=== PATIENT | male | born 1945 | race Caucasian/White ===

== ENCOUNTER 2017-10-03 18:44 | Observation (INO) | payer OTHER ==
[~2017-10-03] VITALS: Ht 182.9 cm; Wt 83.7 kg
[~2017-10-03 18:44] MED LIST: ASPIRIN E.C.81 M2 PO; ASPIRIN81 M1 PO; CARAFATE1 GM PO; CIPROFLOXACIN500 M1 PO; Catapres-TTS 3 TD; Ceftin PO; Cipro PO; DICYCLOMINE HCL20 MG PO; ENDOCET 5-3251 EACH PO; FLAGYL500 MG PO; FLOMAX0.4 MG PO; Flagyl PO; Habitrol,Nicoderm CQ TD; INDERAL10 MG PO; LEVAQUIN750 MG PO; LISINOPRIL-HCT1 EACH PO; LOPRESSOR50 MG PO; METRONIDAZOLE500 MG PO; NITROFURANTOIN100 M3 PO; NOHOMEMEDS; NORVASC10 MG PO; Norvasc PO; OMEPRAZOLE20 MG PO; OXYCODONE HCL10 MG PO; OxyCODONE PO; PANTOPRAZOLE SO40 MG PO; PERCOCET 5/31 TABLET PO; PHENERGAN25 MG PR; PRINZIDE 10-121 EACH PO; PROMETHAZINE HC25 M1 PO; PROTONIX40 MG PO; Percocet 5/325,Endoc PO; Protonix PO; REGLAN10 MG PO; Reglan PO; SENNA-TIME S T1 EACH PO; SUCRALFATE1 GM PO; TYLENOL WITH C1 EACH PO; XARELTO15 MG PO; ZESTORETIC 10-1 EAC1 PO; ZOFRAN4 MG PO
[2017-10-03 20:10] LABS: HEMATOCRIT 47.7 % (38.0-50.0); HEMOGLOBIN 16.1 G/DL (12.5-16.6); MCH 29.4 PG (29.0-34.0); MCHC 33.8 G/DL (30.0-36.0); RBC DIS.WIDTH-CV 13.7 % (11.8-14.6); RBC DIS.WIDTH-SD 43.9 % (39-53); RED BLOOD COUNT 5.48 M/uL (4.00-5.50); WHITE BLOOD COUNT 14.6 K/uL (4.1-10.2)
[2017-10-03 20:12] LABS: PLATELET COUNT 291 K/uL (156-360)
[2017-10-03 20:22] LABS: ALBUMIN 4.6 g/dL (3.2-4.8); CHLORIDE 99 mEq/L (99-109); POTASSIUM 4.4 mEq/L (3.7-5.4); SODIUM 139 mEq/L (136-147)
[2017-10-03 20:24] LABS: GLUCOSE 170 mg/dL (70-99); TOTAL PROTEIN 8.5 g/dL (6.4-8.3)
[2017-10-03 20:26] LABS: TOTAL BILIRUBIN 0.5 mg/dL (0.0-1.0)
[2017-10-03 20:28] LABS: ALKALINE PHOSPHATASE 152 IU/L (3-129); CREATININE 1.1 mg/dL (0.6-1.3); GFR ESTIMATE (CALCULATED) > 59 mL/min/ (58.99-99999)
[2017-10-03 20:29] LABS: UREA NITROGEN (BUN) 19 mg/dL (9-23)
[2017-10-03 20:30] LABS: AST (GOT) 17 IU/L (2-34)
[2017-10-03 20:31] LABS: ALT (GPT) 13 IU/L (3-49)
[2017-10-03 21:13] LABS: LIPASE 4 U/L (1.0-51.0)
[2017-10-03 21:16] LABS: TROP-I INTERPRETATION NEGATIVE; TROPONIN-I 0.03 ng/mL (0.0-0.30)
[2017-10-04 01:49] LABS: APPEARANCE CLEAR ((CLEAR)); BILIRUBIN NEGATIVE; BLOOD SMALL; COLOR YELLOW ((YELLOW)); GLUCOSE (STRIP) 50; KETONES 5; LEUKOCYTES NEGATIVE; NITRITE NEGATIVE; PROTEIN (STRIP) 100; SPECIFIC GRAVITY 1.032 (1.000-1.030); UROBILINOGEN 0.2 MG/DL (0.2-1.0)
[2017-10-04 01:53] LABS: BACTERIA NONE SEEN /HPF; EPITHELIAL CELLS RARE /HPF; MUCUS NONE SEEN /LPF; RED BLOOD CELLS 15-20 /HPF (0-5); UCUL ADDED? NO; WHITE BLOOD CELLS 0-5 /HPF (0-5)
[2017-10-04 02:07] LABS: TROP-I INTERPRETATION NEGATIVE; TROPONIN-I 0.06 ng/mL (0.0-0.30)
[2017-10-04] MEDS ORDERED: CLOTRIMAZOLE-BE15 GM TP (08:55)
[2017-10-04] MEDS ORDERED: CLONIDINE HCL0.2 MG PO (08:56)
[2017-10-04] MEDS ORDERED: ASPIRIN81 M2 PO (08:56)
[2017-10-04] MEDS ORDERED: LISINOPRIL-HCT1 EAC3 PO (09:00)
[2017-10-04 09:44] LABS: TROP-I INTERPRETATION NEGATIVE; TROPONIN-I 0.09 ng/mL (0.0-0.30)
[2017-10-04 10:02] VITALS: BP 179/81
[2017-10-04 15:44] LABS: TROP-I INTERPRETATION NEGATIVE; TROPONIN-I 0.08 ng/mL (0.0-0.30)
[2017-10-04 16:11] VITALS: BP 178/67
[2017-10-04 20:00] VITALS: BP 142/75
[2017-10-05 00:13] VITALS: BP 136/65
[2017-10-05 04:47] VITALS: BP 109/66
[2017-10-05 06:16] LABS: MCH 28.4 PG (29.0-34.0); MCHC 32.6 G/DL (30.0-36.0); PLATELET COUNT 295 K/uL (156-360); RBC DIS.WIDTH-CV 13.9 % (11.8-14.6); RBC DIS.WIDTH-SD 44.2 % (39-53); RED BLOOD COUNT 5.29 M/uL (4.00-5.50)
[2017-10-05 06:39] LABS: CHLORIDE 98 MEQ/L (99-109); CREATININE 1.1 MG/DL (0.6-1.3); GFR ESTIMATE (CALCULATED) > 59 mL/min/ (58.99-99999); POTASSIUM 4.2 MEQ/L (3.7-5.4); SODIUM 135 MEQ/L (136-147); UREA NITROGEN (BUN) 26 mg/dL (9-23)
[2017-10-05 06:43] LABS: GLUCOSE 104 mg/dL (70-99)
[2017-10-05 07:19] VITALS: BP 126/69
[2017-10-05 10:44] VITALS: BP 141/74
[2017-10-05 16:19] VITALS: BP 111/62
[2017-10-05 19:30] VITALS: BP 124/61
[2017-10-05 20:51] LABS: APPEARANCE CLEAR ((CLEAR)); BILIRUBIN NEGATIVE; BLOOD SMALL; COLOR YELLOW ((YELLOW)); GLUCOSE (STRIP) NEGATIVE; KETONES NEGATIVE; LEUKOCYTES NEGATIVE; NITRITE NEGATIVE; PROTEIN (STRIP) NEGATIVE; SPECIFIC GRAVITY 1.014 (1.000-1.030); UROBILINOGEN 0.2 MG/DL (0.2-1.0)
[2017-10-05 21:06] LABS: BACTERIA NONE SEEN /HPF; EPITHELIAL CELLS NONE SEEN /HPF; MUCUS TRACE /LPF; RED BLOOD CELLS 0-5 /HPF (0-5); UCUL ADDED? NO; WHITE BLOOD CELLS 0-5 /HPF (0-5)
[2017-10-06 00:03] VITALS: BP 88/51
[2017-10-06 04:01] VITALS: BP 100/59
[2017-10-06 07:26] VITALS: BP 128/61
[2017-10-06] MEDS ORDERED: BENTYL20 MG PO (09:34)
[2017-10-06] MEDS ORDERED: PANTOPRAZOLE SO40 MG PO (09:35)
[2017-10-06] MEDS ORDERED: FLAGYL500 MG PO (09:36)
[2017-10-06] MEDS ORDERED: CIPRO500 MG PO (09:36)
[2017-10-06 10:02] LABS: HEMATOCRIT 41.6 % (38.0-50.0); HEMOGLOBIN 13.7 G/DL (12.5-16.6); MCH 29.4 PG (29.0-34.0); MCHC 32.9 G/DL (30.0-36.0); MCV 89.3 FL (86-99); RBC DIS.WIDTH-SD 45.5 % (39-53); RED BLOOD COUNT 4.66 M/uL (4.00-5.50); WHITE BLOOD COUNT 10.4 K/uL (4.1-10.2)
[2017-10-06 10:11] LABS: PLATELET COUNT 191 K/uL (156-360)
[2017-10-06 10:13] LABS: CHLORIDE 101 MEQ/L (99-109); CREATININE 1.1 MG/DL (0.6-1.3); GFR ESTIMATE (CALCULATED) > 59 mL/min/ (58.99-99999); GLUCOSE 128 mg/dL (70-99); POTASSIUM 3.8 MEQ/L (3.7-5.4); SODIUM 134 MEQ/L (136-147); UREA NITROGEN (BUN) 31 mg/dL (9-23)
[2017-10-06 10:55] VITALS: BP 124/63
== END 2017-10-06 14:32 | disposition home or self-care (01) ==
LOC: EME 18:44 → EDOF 10-04 08:10 → 5WEST 10-04 08:10 → ENRESERV 10-04 08:13 → EDOF 10-04 08:27 → ENRESERV 10-04 08:43 → UNDODEPER 10-04 09:17 → 5WEST 10-04 09:29 → EDOF 10-04 09:35 → ENRESERV 10-04 09:54 → 5WEST 10-04 09:54
PROVIDERS: Emergency Medicine; Internal Medicine; Nurse Practitioner Adult Health
PROC: 0DB68ZX Excision of Stomach, Via Natural or Artificial Opening Endoscopic, Diagnostic (ICD-10-PCS; principal; 2017-10-05)
DX: R07.9 Chest pain, unspecified (principal); A09 Infectious gastroenteritis and colitis, unspecified; N13.5 Crossing vessel and stricture of ureter without hydronephrosis; N26.1 Atrophy of kidney (terminal); I25.2 Old myocardial infarction; I34.0 Nonrheumatic mitral (valve) insufficiency; I27.20 Pulmonary hypertension, unspecified; I48.91 Unspecified atrial fibrillation; R55 Syncope and collapse; F17.210 Nicotine dependence, cigarettes, uncomplicated; I25.10 Atherosclerotic heart disease of native coronary artery without angina pectoris; I10 Essential (primary) hypertension; Z90.49 Acquired absence of other specified parts of digestive tract; Z90.3 Acquired absence of stomach [part of]; Z87.11 Personal history of peptic ulcer disease; Z87.442 Personal history of urinary calculi; R91.1 Solitary pulmonary nodule; N13.39 Other hydronephrosis; Z82.49 Family history of ischemic heart disease and other diseases of the circulatory system; Z82.3 Family history of stroke; Z88.0 Allergy status to penicillin; Z88.8 Allergy status to other drugs, medicaments and biological substances; Z88.5 Allergy status to narcotic agent
CPT/HCPCS: 71045; 74177; 74181; 80048; 80053; 81003; 83690; 84484; 85027; 87040; 88305; 88342 TC; 93005; 93306; 94799; 99281; 99285; C9113; G0378; J0500; J0744; J1630; J2060; J2405; J3010; J7030; J7120; S0030

== ENCOUNTER 2017-12-02 08:09 | Inpatient (IN) | payer OTHER ==
[~2017-12-02] VITALS: Ht 182.9 cm; Wt 82.0 kg
[~2017-12-02 08:09] MED LIST changes: +ASPIRIN81 M2 PO; +BENTYL20 MG PO; +CIPRO500 MG PO; +CLONIDINE HCL0.2 MG PO; +CLOTRIMAZOLE-BE15 GM TP; +LISINOPRIL-HCT1 EAC3 PO
[2017-12-02 08:56] LABS: APPEARANCE CLEAR ((CLEAR)); BILIRUBIN NEGATIVE; BLOOD SMALL; COLOR YELLOW ((YELLOW)); GLUCOSE (STRIP) NEGATIVE; KETONES 5; LEUKOCYTES NEGATIVE; NITRITE NEGATIVE; PROTEIN (STRIP) NEGATIVE; SPECIFIC GRAVITY 1.018 (1.000-1.030)
[2017-12-02 09:13] LABS: BACTERIA NONE SEEN /HPF; EPITHELIAL CELLS RARE /HPF; MUCUS TRACE /LPF; UCUL ADDED? NO; WHITE BLOOD CELLS 0-5 /HPF (0-5)
[2017-12-02 09:26] LABS: BASOPHIL (%) 0.5 % (0-1); BASOPHIL COUNT 0.1 K/uL (0-0.1); EOSINOPHIL (%) 0.4 % (0-5); HEMATOCRIT 41.8 % (38.0-50.0); HEMOGLOBIN 14.1 G/DL (12.5-16.6); IMMATURE GRANULOCYTE (%) 0.5 % (0.0-0.7); LYMPHOCYTE (%) 9.8 % (15-42); LYMPHOCYTE COUNT 1.1 K/uL (1.0-2.8); MCH 29.6 PG (29.0-34.0); MCHC 33.7 G/DL (30.0-36.0); MCV 87.8 FL (86-99); MONOCYTE (%) 5.6 % (3-12); MONOCYTE COUNT 0.6 K/uL (0-0.8); NEUTROPHIL (%) 83.2 % (45-76); NEUTROPHIL COUNT 9.1 K/uL (1.8-6.4); PLATELET COUNT 290 K/uL (156-360); RBC DIS.WIDTH-CV 13.8 % (11.8-14.6); RBC DIS.WIDTH-SD 44.8 % (39-53); RED BLOOD COUNT 4.76 M/uL (4.00-5.50); WHITE BLOOD COUNT 10.9 K/uL (4.1-10.2)
[2017-12-02 09:38] LABS: CHLORIDE 101 mEq/L (99-109); SODIUM 139 mEq/L (136-147)
[2017-12-02 09:40] LABS: GLUCOSE 142 mg/dL (70-99); TOTAL PROTEIN 7.6 g/dL (6.4-8.3)
[2017-12-02 09:42] LABS: TOTAL BILIRUBIN 0.4 mg/dL (0.0-1.0)
[2017-12-02 09:43] LABS: ALKALINE PHOSPHATASE 128 IU/L (3-129)
[2017-12-02 09:44] LABS: CREATININE 1.1 mg/dL (0.6-1.3); GFR ESTIMATE (CALCULATED) > 59 mL/min/ (58.99-99999)
[2017-12-02 09:45] LABS: AST (GOT) 13 IU/L (2-34); UREA NITROGEN (BUN) 17 mg/dL (9-23)
[2017-12-02 09:47] LABS: ALT (GPT) 8 IU/L (3-49); LIPASE 2 U/L (1.0-51.0)
[2017-12-02 12:15] VITALS: BP 190/99
[2017-12-02] MEDS ORDERED: PROTONIX40 MG PO (13:16)
[2017-12-02 16:00] VITALS: BP 197/93
[2017-12-02 18:32] VITALS: BP 168/75
[2017-12-02 20:00] VITALS: BP 178/88
[2017-12-02 21:53] VITALS: BP 173/87
[2017-12-02 23:43] VITALS: BP 83/44
[2017-12-03] VITALS (8 sets, daily range): BP systolic 82–135; BP diastolic 40–67
[2017-12-03 06:10] LABS: HEMATOCRIT 36.7 % (38.0-50.0); MCH 28.9 PG (29.0-34.0); MCHC 32.7 G/DL (30.0-36.0); MCV 88.4 FL (86-99); PLATELET COUNT 232 K/uL (156-360); RBC DIS.WIDTH-CV 13.9 % (11.8-14.6); RBC DIS.WIDTH-SD 45.1 % (39-53); RED BLOOD COUNT 4.15 M/uL (4.00-5.50); WHITE BLOOD COUNT 9.7 K/uL (4.1-10.2)
[2017-12-03 06:41] LABS: CHLORIDE 101 MEQ/L (99-109); CREATININE 1.3 MG/DL (0.6-1.3); GFR ESTIMATE (CALCULATED) 58 mL/min/ (58.99-99999); GLUCOSE 113 mg/dL (70-99); POTASSIUM 3.8 MEQ/L (3.7-5.4); SODIUM 136 MEQ/L (136-147); UREA NITROGEN (BUN) 18 mg/dL (9-23)
[2017-12-04] VITALS: BP 181/82
[2017-12-04 04:00] VITALS: BP 160/82
[2017-12-04 06:45] LABS: BASOPHIL (%) 0.4 % (0-1); EOSINOPHIL (%) 0 % (0-5); HEMATOCRIT 38.8 % (38.0-50.0); HEMOGLOBIN 13.2 G/DL (12.5-16.6); IMMATURE GRANULOCYTE (%) 0.5 % (0.0-0.7); LYMPHOCYTE (%) 10.3 % (15-42); LYMPHOCYTE COUNT 1.1 K/uL (1.0-2.8); MCH 29.1 PG (29.0-34.0); MCV 85.5 FL (86-99); MONOCYTE (%) 5.6 % (3-12); MONOCYTE COUNT 0.6 K/uL (0-0.8); NEUTROPHIL (%) 83.2 % (45-76); PLATELET COUNT 248 K/uL (156-360); RBC DIS.WIDTH-CV 13.2 % (11.8-14.6); RBC DIS.WIDTH-SD 41.1 % (39-53); RED BLOOD COUNT 4.54 M/uL (4.00-5.50); WHITE BLOOD COUNT 10.8 K/uL (4.1-10.2)
[2017-12-04 07:06] LABS: ALBUMIN 3.5 G/DL (3.2-4.8); ALKALINE PHOSPHATASE 97 IU/L (3-129); ALT (GPT) 7 IU/L (3-49); AST (GOT) 17 IU/L (2-34); CHLORIDE 94 MEQ/L (99-109); CREATININE 0.9 MG/DL (0.6-1.3); GFR ESTIMATE (CALCULATED) > 59 mL/min/ (58.99-99999); GLUCOSE 134 mg/dL (70-99); POTASSIUM 3.4 MEQ/L (3.7-5.4); SODIUM 131 MEQ/L (136-147); TOTAL BILIRUBIN 0.5 MG/DL (0.0-1.0); TOTAL PROTEIN 6.6 G/DL (6.4-8.3); UREA NITROGEN (BUN) 13 mg/dL (9-23)
[2017-12-04 08:07] VITALS: BP 160/90
[2017-12-04 12:23] VITALS: BP 154/84
[2017-12-04 16:03] VITALS: BP 148/62
[2017-12-04 19:31] VITALS: BP 136/84
[2017-12-05 00:37] VITALS: BP 175/78
[2017-12-05 05:50] VITALS: BP 98/55
[2017-12-05 06:25] LABS: BASOPHIL (%) 0.3 % (0-1); EOSINOPHIL (%) 0.7 % (0-5); EOSINOPHIL COUNT 0.1 K/uL (0-0.3); HEMATOCRIT 36.6 % (38.0-50.0); HEMOGLOBIN 12.7 G/DL (12.5-16.6); IMMATURE GRANULOCYTE (%) 0.9 % (0.0-0.7); LYMPHOCYTE (%) 17.4 % (15-42); LYMPHOCYTE COUNT 1.6 K/uL (1.0-2.8); MCH 29.1 PG (29.0-34.0); MCHC 34.7 G/DL (30.0-36.0); MCV 83.9 FL (86-99); MONOCYTE COUNT 0.9 K/uL (0-0.8); NEUTROPHIL (%) 70.7 % (45-76); NEUTROPHIL COUNT 6.4 K/uL (1.8-6.4); PLATELET COUNT 248 K/uL (156-360); RBC DIS.WIDTH-CV 12.8 % (11.8-14.6); RBC DIS.WIDTH-SD 39.2 % (39-53); RED BLOOD COUNT 4.36 M/uL (4.00-5.50)
[2017-12-05 06:49] LABS: ALBUMIN 3.1 G/DL (3.2-4.8); ALKALINE PHOSPHATASE 87 IU/L (3-129); ALT (GPT) 6 IU/L (3-49); AST (GOT) 13 IU/L (2-34); CHLORIDE 91 MEQ/L (99-109); CREATININE 1.1 MG/DL (0.6-1.3); GFR ESTIMATE (CALCULATED) > 59 mL/min/ (58.99-99999); GLUCOSE 128 mg/dL (70-99); POTASSIUM 3.1 MEQ/L (3.7-5.4); SODIUM 129 MEQ/L (136-147); TOTAL BILIRUBIN 0.6 MG/DL (0.0-1.0); UREA NITROGEN (BUN) 13 mg/dL (9-23)
[2017-12-05 07:07] LABS: TOTAL PROTEIN 5.5 G/DL (6.4-8.3)
[2017-12-05 08:04] VITALS: BP 131/63
[2017-12-05 11:34] VITALS: BP 149/82
[2017-12-05 17:10] VITALS: BP 152/84
[2017-12-05 19:32] VITALS: BP 194/86
[2017-12-06] VITALS (8 sets, daily range): BP systolic 90–192; BP diastolic 48–89
[2017-12-06 06:22] LABS: CHLORIDE 99 MEQ/L (99-109); GFR ESTIMATE (CALCULATED) > 59 mL/min/ (58.99-99999); POTASSIUM 3.5 MEQ/L (3.7-5.4); SODIUM 132 MEQ/L (136-147); UREA NITROGEN (BUN) 16 mg/dL (9-23)
[2017-12-06 06:23] LABS: GLUCOSE 93 mg/dL (70-99)
[2017-12-06 06:35] LABS: BASOPHIL (%) 0.5 % (0-1); EOSINOPHIL (%) 0.9 % (0-5); EOSINOPHIL COUNT 0.1 K/uL (0-0.3); HEMATOCRIT 35.5 % (38.0-50.0); IMMATURE GRANULOCYTE (%) 0.8 % (0.0-0.7); LYMPHOCYTE (%) 20.3 % (15-42); LYMPHOCYTE COUNT 1.8 K/uL (1.0-2.8); MCH 29.2 PG (29.0-34.0); MCHC 33.8 G/DL (30.0-36.0); MCV 86.4 FL (86-99); MONOCYTE (%) 11.3 % (3-12); NEUTROPHIL (%) 66.2 % (45-76); NEUTROPHIL COUNT 5.8 K/uL (1.8-6.4); PLATELET COUNT 227 K/uL (156-360); RBC DIS.WIDTH-CV 13.4 % (11.8-14.6); RED BLOOD COUNT 4.11 M/uL (4.00-5.50); WHITE BLOOD COUNT 8.7 K/uL (4.1-10.2)
[2017-12-07 03:36] VITALS: BP 106/67
[2017-12-07 05:32] LABS: BASOPHIL (%) 0.6 % (0-1); BASOPHIL COUNT 0.1 K/uL (0-0.1); EOSINOPHIL COUNT 0.2 K/uL (0-0.3); HEMATOCRIT 33.8 % (38.0-50.0); HEMOGLOBIN 11.1 G/DL (12.5-16.6); IMMATURE GRANULOCYTE (%) 0.8 % (0.0-0.7); LYMPHOCYTE (%) 23.1 % (15-42); LYMPHOCYTE COUNT 1.8 K/uL (1.0-2.8); MCH 28.8 PG (29.0-34.0); MCHC 32.8 G/DL (30.0-36.0); MCV 87.6 FL (86-99); MONOCYTE (%) 10.6 % (3-12); MONOCYTE COUNT 0.8 K/uL (0-0.8); NEUTROPHIL (%) 62.9 % (45-76); PLATELET COUNT 214 K/uL (156-360); RBC DIS.WIDTH-CV 13.7 % (11.8-14.6); RBC DIS.WIDTH-SD 43.8 % (39-53); RED BLOOD COUNT 3.86 M/uL (4.00-5.50); WHITE BLOOD COUNT 7.9 K/uL (4.1-10.2)
[2017-12-07 05:45] LABS: CHLORIDE 103 MEQ/L (99-109); GFR ESTIMATE (CALCULATED) > 59 mL/min/ (58.99-99999); GLUCOSE 105 mg/dL (70-99); POTASSIUM 3.8 MEQ/L (3.7-5.4); SODIUM 135 MEQ/L (136-147); UREA NITROGEN (BUN) 15 mg/dL (9-23)
[2017-12-07 07:52] VITALS: BP 107/56
[2017-12-07 11:36] VITALS: BP 108/57
[2017-12-07 16:00] VITALS: BP 93/53
[2017-12-07 19:35] VITALS: BP 95/47
[2017-12-07 23:38] VITALS: BP 130/56
[2017-12-08 03:49] VITALS: BP 131/56
[2017-12-08 06:00] LABS: BASOPHIL (%) 0.6 % (0-1); BASOPHIL COUNT 0.1 K/uL (0-0.1); EOSINOPHIL COUNT 0.2 K/uL (0-0.3); HEMATOCRIT 32.8 % (38.0-50.0); HEMOGLOBIN 10.6 G/DL (12.5-16.6); IMMATURE GRANULOCYTE (%) 0.6 % (0.0-0.7); LYMPHOCYTE (%) 19.1 % (15-42); LYMPHOCYTE COUNT 1.6 K/uL (1.0-2.8); MCH 29.4 PG (29.0-34.0); MCHC 32.3 G/DL (30.0-36.0); MCV 90.9 FL (86-99); MONOCYTE (%) 10.4 % (3-12); MONOCYTE COUNT 0.9 K/uL (0-0.8); NEUTROPHIL (%) 67.3 % (45-76); NEUTROPHIL COUNT 5.6 K/uL (1.8-6.4); PLATELET COUNT 194 K/uL (156-360); RBC DIS.WIDTH-CV 14.3 % (11.8-14.6); RBC DIS.WIDTH-SD 47.7 % (39-53); RED BLOOD COUNT 3.61 M/uL (4.00-5.50); WHITE BLOOD COUNT 8.3 K/uL (4.1-10.2)
[2017-12-08 06:25] LABS: CHLORIDE 105 MEQ/L (99-109); GFR ESTIMATE (CALCULATED) > 59 mL/min/ (58.99-99999); GLUCOSE 95 mg/dL (70-99); POTASSIUM 4.2 MEQ/L (3.7-5.4); SODIUM 139 MEQ/L (136-147); UREA NITROGEN (BUN) 12 mg/dL (9-23)
[2017-12-08 07:20] VITALS: BP 116/56
[2017-12-08 11:06] VITALS: BP 108/53
[2017-12-08 15:17] VITALS: BP 114/53
[2017-12-08 19:13] VITALS: BP 102/51
[2017-12-09 00:52] VITALS: BP 112/55
[2017-12-09 03:32] VITALS: BP 132/60
[2017-12-09 07:55] VITALS: BP 150/71
[2017-12-09] MEDS ORDERED: ZOFRAN ODT4 MG SL (11:46)
[2017-12-09] MEDS ORDERED: LISINOPRIL20 MG PO (11:46)
[2017-12-09] MEDS ORDERED: CIPROFLOXACIN500 M1 PO (11:46)
[2017-12-09] MEDS ORDERED: ENDOCET 5-3251 EACH PO (11:46)
[2017-12-09] MEDS ORDERED: PROTONIX40 MG PO (11:46)
[2017-12-09] MEDS ORDERED: CLONIDINE1 EAC1 TD (11:46)
[2017-12-09] MEDS ORDERED: TRAZODONE HCL50 MG PO (11:46)
[2017-12-09] MEDS ORDERED: METRONIDAZOLE500 MG PO (11:46)
[2017-12-09] MEDS ORDERED: PROMETHAZINE HC25 M1 PO (15:00)
[2017-12-09] MEDS ORDERED: OMEPRAZOLE40 M1 PO (15:02)
== END 2017-12-09 15:27 | disposition home or self-care (01) | DRG 392 ==
LOC: EME 08:09 → 5SOUTH 11:16 → EDOF 11:16 → ENRESERV 11:17 → 5SOUTH 12:10
PROVIDERS: Emergency Medicine; Family Medicine; Hospitalist; Physician Assistant; Physician Assistant Surgical
DX: K57.20 Diverticulitis of large intestine with perforation and abscess without bleeding (principal); E87.1 Hypo-osmolality and hyponatremia; I48.0 Paroxysmal atrial fibrillation; K21.9 Gastro-esophageal reflux disease without esophagitis; I12.9 Hypertensive chronic kidney disease with stage 1 through stage 4 chronic kidney disease, or unspecified chronic kidney disease; Z90.3 Acquired absence of stomach [part of]; K52.9 Noninfective gastroenteritis and colitis, unspecified; E11.22 Type 2 diabetes mellitus with diabetic chronic kidney disease; I25.10 Atherosclerotic heart disease of native coronary artery without angina pectoris; I27.20 Pulmonary hypertension, unspecified; F17.200 Nicotine dependence, unspecified, uncomplicated; E78.5 Hyperlipidemia, unspecified; E87.6 Hypokalemia; K29.60 Other gastritis without bleeding; Z86.73 Personal history of transient ischemic attack (TIA), and cerebral infarction without residual deficits; N18.3 Chronic kidney disease, stage 3 (moderate)
CPT/HCPCS: 74177; 80048; 80053; 81003; 83605; 83690; 85025; 85027; 87040; 99281; 99285; C1753; C9113; J0360; J0744; J1644; J2270; J2405; J2765; J3010; J7030; J7040; S0030